=== PATIENT | male | born 1950 | race Two or more races ===

== ENCOUNTER 2021-06-12 21:37 | Emergency (ER) | payer MEDICARE, OTHER ==
[~2021-06-12] VITALS: Ht 172.7 cm; Wt 81.6 kg
[2021-06-12] MEDS ORDERED: methylPREDNISolone SOD SUCC 125 MG/2 ML VL IM ONE (23:30)
[2021-06-12] MEDS ORDERED: KETOROLAC TROMETH 60MG/2ML VIAL IM ONE (23:30)
[2021-06-13 00:34] VITALS: BP 90/56
== END 2021-06-13 00:40 | disposition home or self-care (01) ==
LOC: ER 21:37
DX: M62.838 Other muscle spasm (principal); M54.2 Cervicalgia; M43.12 Spondylolisthesis, cervical region; I10 Essential (primary) hypertension; J44.9 Chronic obstructive pulmonary disease, unspecified; F17.210 Nicotine dependence, cigarettes, uncomplicated; Z88.0 Allergy status to penicillin
CPT/HCPCS: 72125; 96372; 99284; J1885; J2930

== ENCOUNTER 2021-12-25 21:22 | Emergency (ER) | payer OTHER ==
[~2021-12-25] VITALS: Ht 175.3 cm; Wt 86.2 kg
[2021-12-26] MEDS ORDERED: ACETAMINOPHEN 325 MG TAB PO ONE (04:15)
[2021-12-26 04:16] VITALS: BP 112/68
== END 2021-12-26 04:32 | disposition home or self-care (01) ==
LOC: ER 21:22
DX: M54.9 Dorsalgia, unspecified (principal); G89.29 Other chronic pain; J44.9 Chronic obstructive pulmonary disease, unspecified; I10 Essential (primary) hypertension; F17.200 Nicotine dependence, unspecified, uncomplicated; Z88.0 Allergy status to penicillin
CPT/HCPCS: 72128; 72131; 93005

== ENCOUNTER 2022-07-28 13:14 | Emergency (ER) | payer OTHER ==
[~2022-07-28] VITALS: Ht 172.7 cm; Wt 85.0 kg
[2022-07-28 13:44] VITALS: BP 118/60
== END 2022-07-28 19:15 | disposition left against medical advice (07) ==
LOC: ER 13:14
DX: M54.9 Dorsalgia, unspecified (principal); Z53.21 Procedure and treatment not carried out due to patient leaving prior to being seen by health care provider
CPT/HCPCS: 72100; 93005

== ENCOUNTER 2023-07-16 12:46 | Emergency (ER) | payer OTHER ==
[~2023-07-16] VITALS: Ht 172.7 cm; Wt 80.0 kg
[2023-07-16] MEDS ORDERED: HYDROcodone-ACET 5/325MG TAB PO ONE (16:45)
[2023-07-16 16:59] VITALS: BP 109/66; PULSE 66; RESP 18; TEMP 98.6; O2SAT 98
[2023-07-16] MEDS ORDERED: DICL1GEL59 EX (17:28)
[2023-07-16] MEDS ORDERED: HYDR-4902 PO (17:28)
== END 2023-07-16 18:00 | disposition home or self-care (01) ==
LOC: ER 12:51
DX: M25.561 Pain in right knee (principal); M17.11 Unilateral primary osteoarthritis, right knee; I10 Essential (primary) hypertension; J44.9 Chronic obstructive pulmonary disease, unspecified; F17.210 Nicotine dependence, cigarettes, uncomplicated; Z79.899 Other long term (current) drug therapy; Z88.0 Allergy status to penicillin
CPT/HCPCS: 73562; 93971

== ENCOUNTER 2023-10-21 14:22 | Emergency (ER) | payer OTHER ==
[~2023-10-21] VITALS: Ht 172.7 cm; Wt 78.8 kg
[~2023-10-21 14:22] MED LIST: DICL1GEL59 EX; HYDR-4902 PO
[2023-10-21 18:48] VITALS: BP 103/62; PULSE 87; RESP 14; TEMP 98; O2SAT 96
[2023-10-21] MEDS: KETOROLAC TROMETH 60MG/2ML VIAL IM ONE (18:58)
[2023-10-21] MEDS ORDERED: IBUP-1455 PO (19:29)
[2023-10-21] MEDS ORDERED: CYCL-839 PO (19:29)
== END 2023-10-21 19:44 | disposition home or self-care (01) ==
LOC: ER 14:22
DX: M43.6 Torticollis (principal); M19.90 Unspecified osteoarthritis, unspecified site; J44.9 Chronic obstructive pulmonary disease, unspecified; I10 Essential (primary) hypertension; F17.210 Nicotine dependence, cigarettes, uncomplicated; Z88.0 Allergy status to penicillin
CPT/HCPCS: 72125; 96372; 99285; J1885

== ENCOUNTER 2025-01-25 10:17 | Inpatient (IN) | payer OTHER ==
[~2025-01-25] VITALS: Ht 172.7 cm; Wt 81.8 kg
[~2025-01-25 10:17] MED LIST changes: +CYCL-839 PO; +IBUP-1455 PO
--- NOTE | 2025-01-25 10:35 | ED.PDOC ---
History of Present Illness HPI Comments This is a 74-year-old male with no significant past medical history presented to the ER via EMS painful swelling of the right hand for last 2 days prior to this visit. The patient stated that he was pumping the kitchen sink got hurt in right hand and started developing painful swelling, getting worse that prompted this visit. Also mention that he has chronic back pain but for last 2 days back pain getting worse especially the upper back. He denies fever, chills, dizziness, blurred vision, dysuria, hematuria or any changes in bowel and bladder habit. Time Seen by MD: 10:18 Primary Care Provider: NONE Allergies: Coded Allergies: Penicillins (Verified Allergy, Unknown, 05/14/15) Home Meds Active Scripts Cyclobenzaprine Hcl (Cyclobenzaprine Hcl) 10 Mg Tab, 10 MG PO Q8HPRN PRN, #20 TAB Prov:PEGGY CASAREZ 10/21/23 Ibuprofen Micronized (Ibuprofen) 800 Mg Tab, 800 MG PO TIDPRN PRN, #20 TAB Prov:PEGGY CASAREZ [facility] 10/21/23 Diclofenac Sodium (Topical) (Voltaren Arthritis Pain) 1 % Gel, 1 % EX BID PRN, #100 GEL Prov:IDALMIS JOHNSON [employer]PROFIT MANAGER 07/16/23 Hydrocodone-Acetaminophen (Hydrocodone Bitartrate/AC 5-325 mg) 1 Tab Tab, 1 TAB PO Q8HPRN PRN for 5 Days, #12 TAB Prov:IDALMIS JOHNSON 07/16/23 Information Source: Patient Mode of Arrival: EMS Severity: Moderate Timing: Days Duration: Since onset Prehospital treatment: None Past Medical History PAST MEDICAL HISTORY: Denies Surgical History: Denies all surgeries Family History Family History: Reviewed,noncontributory to illness, No family hx of DM, No family hx of HTN Social History Smoker: Greater Than 1 Pack/Day Alcohol: Denies ETOH Use Drugs: Denies Drug Use Lives In: Home Constitutional: reports: chills, sweats; denies: diaphoresis, fatigue, fever, malaise, weakness, others EENTM: denies: blurred vision, double vision, ear bleeding, ear discharge, ear drainage, ear pain, ear ringing, eye pain, eye redness, hearing loss, mouth pain, mouth swelling, nasal discharge, nose bleeding, nose congestion, nose pain, photophobia, tearing, throat pain, throat swelling, voice changes, others Respiratory: denies: cough, hemoptysis, orthopnea, SOB at rest, shortness of breath, SOB with excertion, stridor, wheezing, others Cardiovascular: denies: chest pain, dizzy spells, diaphoresis, Dyspnea on e xertion, edema, irregular heart beat, left arm pain, lightheadedness, palpitations, PND, syncope, others Gastrointestinal: denies: abdomen distended, abdominal pain, blood streaked bowels, constipated, diarrhea, dysphagia, difficulty swallowing, hematemesis, melena, nausea, poor appetite, poor fluid intake, rectal bleeding, rectal pain, vomiting, others Genitourinary: denies: burning, dysuria, flank pain, frequency, hematuria, incontinence, penile discharge, penile sore, pain, testicle pain, testicle swelling, urgency, others Neurological: denies: dizziness, fainting, headache, left sided numbness, left sided weakness, numbness, paresthesia, pre-existing deficit, right sided numbness, right sided weakness, seizure, speech problems, tingling, tremors, weakness, others Musculoskeletal: reports: back pain, others (Pain and swelling of the right hand); denies: gout, joint pain, joint swelling, muscle pain, muscle stiffness, neck pain Integumetry: denies: bruises, change in color, change in hair/nails, dryness, laceration, lesions, lumps, rash, wounds, others Allergic/Immunocompromised: denies: Difficulty Healing, Frequent Infections, Hives, Itching, others Hematologic/Lymphatic: denies: anemia, blood clots, easy bleeding, easy bruising, swollen glands, others Endocrine: denies: excessive hunger, excessive sweating, excessive thirst, excessive urination, flushing, intolerance to cold, intolerance to heat, unexplained weight gain, unexplained weight loss, others Psychiatric: denies: anxiety, bipolar disorder, depression, hopeless, panic disorder, schizophrenia, sleepless, suicidal, others Physical Exam General Appearance: Mild Distress HEENT: Normal ENT Inspection, Pharynx Normal, TMs Normal Neck: Full Range of Motion, Non-Tender, Normal, Normal Inspection Respiratory: Chest Non-Tender, Lungs Clear, No Accessory Muscle Use, No Respiratory Distress, Normal Breath Sounds Cardiovascular: No Edema, No JVD, No Murmur, No Gallop, Normal Peripheral Pulses, Regular Rate/Rhythm Breast Exam: Deferred Gastrointestinal: No Organomegaly, Non Tender, No Pulsatile Mass, Normal Bowel Sounds, Soft Genitalia: Deferred Pelvic: Deferred Rectal: Deferred Extremities: No calf tenderness, Normal capillary refill, No pedal edema, Swelling (Right hand), Tender Neurologic: NOT DONE Cerebellar Function: NOT DONE Reflexes: NOT DONE Skin: NOT DONE Peripheral Pulses: 2+ carotid (R), 2+ carotid (L), 2+ femoral (R), 2+ femoral (L), 2+ dorsalis pedis (R), 2+ dorsalis pedis (L), 2+ Radial (R), 2+ Radial (L), 2+ Brachial (R), 2+ Brachial (L) Lymphatic: NOT DONE Was a procedure done? Was a procedure done?: No Differential Dx Considerations may include: Cellulitis of the right hand, erysipelas, DVT, fracture of the right hand, arthritis of right hand X-Ray, Labs, Meds, VS Vital Signs Date Time Temp Pulse Resp B/P (MAP) Pulse Ox O2 Delivery O2 Flow Rate FiO2 01/25/25 10:30 99.0 90 20 104/66 97 99.0 Lab Test 01/25/25 14:43 01/25/25 12:30 Range/Units Urine Color Yellow Yellow Urine Clarity Clear Clear Urine pH 6.0 5.0-9.0 Urine Specific [place] 1.025 1.001-1.035 Urine Protein Trace H Negative Urine Ketones 1+ H Negative Urine Blood 1+ H Negative /uL Urine Nitrite Negative Negative Urine Bilirubin Negative Negative Urine Urobilinogen Normal Negative mg/dL Urine Leukocyte Esterase Negative Negative /uL Urine RBC 8 0 - 3 /hpf Urine Microscopic WBC 3 0-3 /HPF Urine Squamous Epithelial Cells None seen <5 /hpf Urine Bacteria None seen None Seen /hpf Urine Mucus Moderate None Seen Urine Glucose 1+ H Normal mg/dL White Blood Count 8.0 4.4-10.8 10^3/uL Red Blood Count 4.85 4.5-5.90 10^6/uL Hemoglobin 15.6 13.5-17.5 g/dL Hematocrit 45.7 41.0-53.0 % Mean Corpuscular Volume 94.3 80.0-100.0 fL Mean Corpuscular Hemoglobin 32.1 H 28.0-32.0 pg Mean Corpuscular Hemoglobin Concent 34.1 32.0-36.0 g/dL Red Cell Distribution Width 13.8 11.8-14.3 % Platelet Count 290 140-450 10^3/uL Mean Platelet Volume 7.9 6.9-10.8 fL Neutrophils (%) (Auto) 72.3 37.0-80.0 % Lymphocytes (%) (Auto) 13.7 10.0-50.0 % Monocytes (%) (Auto) 12.7 H 0.0-12.0 % Eosinophils (%) (Auto) 0.7 0.0-7.0 % Basophils (%) (Auto) 0.6 0.0-2.0 % Neutrophils # (Auto) 5.8 1.6-8.6 10 ^3/uL Lymphocytes # (Auto) 1.1 0.4-5.4 10 ^3/uL Monocytes # (Auto) 1.0 0-1.3 10 ^3/uL Eosinophils # (Auto) 0.1 0-0.8 10 ^3/uL Basophils # (Auto) 0 0-0.2 10 ^3/uL Nucleated Red Blood Cells 0.0 % Sodium Level 136 136-145 mmol/L Potassium Level 3.9 3.5-5.1 mmol/L Chloride Level 103 98-107 mmol/L Carbon Dioxide Level 25 20-31 mmol/L Anion Gap 8 5-15 Blood Urea Nitrogen 16 9-23 mg/dL Creatinine 0.80 0.700-1.30 mg/dL Glomerular Filtration Rate Calc 92 >90 mL/min BUN/Creatinine Ratio 20.0 10.0-20.0 Serum Glucose 103 74-106 mg/dL Calcium Level 9.2 8.7-10.4 mg/dL C-Reactive Protein High Sensitivity 11.90 H <1.0 mg/dL X-Ray, Labs, Meds, VS Comment RIGHT Upper Extremity Venous Duplex Clinical History: to exclude DVT Comparison: US RT LOWER DVT on DOS: 07/16/23 Technique: Duplex Doppler evaluation of the venous system of the RIGHT lower neck and upper extremity including color Doppler and spectral/pulsed waveform analysis was performed. Findings: The internal jugular vein demonstrates appropriate compressibility and waveform variability. The subclavian vein is patent on color Doppler evaluation without intraluminal thrombus and demonstrates waveform variability. The visualized portion of the brachiocephalic vein is patent on color Doppler evaluation without intraluminal thrombus and demonstrates waveform variability. The axillary vein demonstrates appropriate compressibility and waveform variability. The brachial veins demonstrate appropriate compressibility and patency on Doppler evaluation. The basilic vein demonstrates appropriate compressibility and patency on Doppler evaluation. The cephalic vein demonstrates appropriate compressibility and patency on Doppler evaluation. Impression: No venous thrombus identified in the RIGHT upper extremity vessels evaluated above. Images Reviewed?: Images reviewed and evaluated by me Time of 1ST Reevaluation: 13:52 Reevaluation 1ST: Unchanged Patient Education/Counseling: Diagnosis, Treatment Family Education/Counseling: No Family Present SEPSIS Sepsis Screen Physician Orders Rt Upper Dvt (01/25/25 10:32) R Hand 2 View Xray (01/25/25 13:23) Vital Signs Date Time Temp Pulse Resp B/P (MAP) Pulse Ox O2 Delivery O2 Flow Rate FiO2 01/25/25 10:30 99.0 90 20 104/66 97 99.0 Laboratory Tests Test 01/25/25 12:30 White Blood Count 8.0 10^3/uL (4.4-10.8) Departure 1 Departure Time of Disposition: 17:12 Impression: Primary Impression: Cellulitis of right hand Disposition: 30 STILL A PATIENT Admit to: Med Surg Condition: Guarded Critical Care Note Critical Care Time?: No Stability Stability form required: COOPER Hernandez RESIDENT Jan 25, 2025 10:35
--- NOTE | 2025-01-25 11:48 | DVH ---
RIGHT Upper Extremity Venous Duplex Clinical History: to exclude DVT Comparison: US RT LOWER DVT on DOS: 07/16/23 Technique: Duplex Doppler evaluation of the venous system of the RIGHT lower neck and upper extremity including color Doppler and spectral/pulsed waveform analysis was performed. Findings: The internal jugular vein demonstrates appropriate compressibility and waveform variability. The subclavian vein is patent on color Doppler evaluation without intraluminal thrombus and demonstra etienne waveform variability. The visualized portion of the brachiocephalic vein is patent on color Doppler evaluation without intr aluminal thrombus and demonstrates waveform variability. The axillary vein demonstrates appropriate compressibility and waveform variability. The brachial veins demonstrate appropriate compressibility and patency on Doppler evaluation. The basilic vein demonstrates appropriate compressibility and patency on Doppler evaluation. The cephalic vein demonstrates appropriate compressibility and patency on Doppler evaluation. Impression: No venous thrombus identified in the RIGHT upper extremity vessels evaluated above.
[2025-01-25 13:20] LABS: Hematocrit 45.7 % (41.0-53.0); Hemoglobin 15.6 g/dL (13.5-17.5); Mean Corpuscular Hemoglobin 32.1 pg (28.0-32.0); Mean Corpuscular Volume 94.3 fL (80.0-100.0); Nucleated Red Blood Cells % 0.0 %
[2025-01-25 13:28] LABS: Chloride 103 mmol/L (98-107); Potassium 3.9 mmol/L (3.5-5.1)
[2025-01-25 13:29] LABS: Anion Gap 8 (5-15); Calcium 9.2 mg/dL (8.7-10.4); Carbon Dioxide 25 mmol/L (20-31)
[2025-01-25 13:31] LABS: Sodium 136 mmol/L (136-145)
[2025-01-25 13:34] LABS: BUN/Creatinine Ratio 20.0 (10.0-20.0); Blood Urea Nitrogen 16 mg/dL (9-23); Glucose 103 mg/dL (74-106)
--- NOTE | 2025-01-25 14:50 | DVH ---
CLINICAL INDICATION: Possible cellulitis of the right hand TECHNIQUE: 2 radiographic views of the right were obtained. Comparison: None FINDINGS/IMPRESSION: Arthritic changes of the distal interphalangeal joint of all fingers and at the carpometacarpal joint of the thumb
[2025-01-25 15:38] LABS: Urine Protein, UAD TRACE (Negative)
[2025-01-25] MEDS ORDERED: ONDANSETRON HCL 4 MG/2 ML VIAL IV PRN (19:45)
[2025-01-25] MEDS ORDERED: DOCUSATE SOD 100 MG CAP PO PRN (19:45)
[2025-01-25] MEDS ORDERED: MORPHINE SULFATE INJ 2 MG/ml SYRG IV PRN ×2 (19:45→20:30)
[2025-01-25] MEDS ORDERED: HYDROcodone-ACET 5/325MG TAB PO PRN (19:45)
[2025-01-25] MEDS ORDERED: ACETAMINOPHEN 325 MG TAB PO PRN (19:45)
[2025-01-25] MEDS ORDERED: NITROGLYCERIN 0.4 MG SL TAB SL PRN (20:30)
--- NOTE | 2025-01-25 20:31 | DVHHP2 ---
History of Present Illness Reason for Visit: Cellulitis of right hand History of Present Illness The patient is a 74-year-old male who denies past medical history presented to [facility] ED with complaint of right hand swelling and pain for the past 2 days. The patient reports that he was pumping the kitchen sink got hurt in right hand and started developing painful swelling, getting worse that prompted this visit. Patient also mention that he has chronic back pain but for last 2 days back pain getting worse especially the upper back. Patient also reports that he has chronic back pain but for last 2 days, back pain getting worse especially the upper back. Patient was seen and evaluated in the ED, laboratory data shows WBC 8.0, platelets 290, sodium 136, potassium 3.9, BUN 16, creatinine 0.80, glucose 103, calcium 9.2, CRP 11.90, blood pressure 104/66, heart rate 90, temperature 99.0 F, O2 saturation 97% on room air. Hand x-ray revealing arthritic changes of the distal interphalangeal joint of fingers and at the carpometacarpal joint of the thumb. Patient was given morphine sulfate 2 mg IV x1, please see medication orders section in the computer. On my assessment, patient denied chest pain, no headache, no dizziness, no shortness of breath, no nausea, no vomiting, no fever, no chills. Patient was admitted for further evaluation and medical management. Past Medical History Denies past medical history Past Surgical History Denies all surgeries Family History Reviewed, noncontributory to the management of this case. Past Social History The patient lives at home, smokes cigarettes greater than 1 pack per day, denies alcohol or illicit drugs abuse. Review of Systems Constitutional: Yes: Weakness; No: Fever, Chills, Sweats, Malaise, Other Eyes: No: Pain, Vision change, Conjunctivae inflammation, Eyelid inflammation, Other, Redness ENT: No: Ear pain, Ear discharge, Nose pain, Nose discharge, Nose congestion, Mouth pain, Mouth swelling, Throat pain, Throat swelling, Other Respiratory: No: Cough, Dry, Shortness of breath, SOB with excertion, Wheezing, Hemoptysis, Pleuritic Pain, Sputum, Wheezing, Other Cardiovascular: No: Chest Pain, Palpitations, Orthopnea, Paroxysmal Noc. Dyspnea, Edema, Lt Headedness, Other Gastrointestinal: No: Nausea, Vomiting, Abdominal Pain, Diarrhea, Constipation, Melena, Hematochezia, Other Genitourinary: No Dysuria, No Frequency, No Incontinence, No Hematuria, No Retention, No Other Musculoskeletal: other (Pain and swelling of the right hand.), back pain; No: neck pain, shoulder pain, arm pain, hand pain, leg pain, foot pain Skin: No: Rash, Lesions, Jaundice, Bruising, Other Neurological: No: Weakness, Numbness, Incoordination, Change in speech, Confusion, Seizures, Other Allergies: Coded Allergies: Penicillins (Verified Allergy, Unknown, 05/14/15) Medications Current Medications Medications Dose Ordered Sig/Wenceslao Route Start Time Stop Time Status Last Admin Dose Admin Clindamycin Phosphate 50 ml @ 50 mls/hr Q8HR IV 01/25/25 22:00 UNV Sodium Chloride 1,000 ml @ 60 mls/hr [id number] IV 01/25/25 19:45 UNV Acetaminophen/ Hydrocodone Bitart 1 tab Q4HP PRN PO 01/25/25 19:45 UNV Ondansetron HCl 4 mg Q4HP PRN IV 01/25/25 19:45 UNV Docusate Sodium 100 mg BIDPRN PRN PO 01/25/25 19:45 UNV Acetaminophen 650 mg Q6HP PRN PO 01/25/25 19:45 UNV Morphine Sulfate 2 mg Q4HPRN PRN IV 01/25/25 19:45 UNV Exam Vital Signs Vital Signs Date Time Temp Pulse Resp B/P (MAP) Pulse Ox O2 Delivery O2 Flow Rate FiO2 01/25/25 10:30 99.0 90 20 104/66 97 99.0 General Appearance: Alert, Oriented X3, Cooperative, No acute distress HEENT: Atraumatic, PERRLA, EOMI, Mucous membr. moist/pink Respiratory: Clear to auscultation, Normal air movement Cardiovascular: Regular rate, Normal S1, Normal S2, No murmurs Abdominal: Normal bowel sounds, Soft, No tenderness, No hepatospenomegaly, No masses Extremities: No clubbing, No cyanosis, Normal pulses, Other (Right hand tenderness/swelling) Skin: No rashes, No significant lesion Neuro: Normal speech, Normal tone, Sensation intact, Cranial nerves 3-12 NL, Reflexes 2+, Other (Generalized weakness) Psych/Mental Status: Mental status NL, Mood NL Labs/Xrays Labs Test 01/25/25 14:43 01/25/25 12:30 Range/Units Urine Color Yellow Yellow Urine Clarity Clear Clear Urine pH 6.0 5.0-9.0 Urine Specific [place] 1.025 1.001-1.035 Urine Protein Trace H Negative Urine Ketones 1+ H Negative Urine Blood 1+ H Negative /uL Urine Nitrite Negative Negative Urine Bilirubin Negative Negative Urine Urobilinogen Normal Negative mg/dL Urine Leukocyte Esterase Negative Negative /uL Urine RBC 8 0 - 3 /hpf Urine Microscopic WBC 3 0-3 /HPF Urine Squamous Epithelial Cells None seen <5 /hpf Urine Bacteria None seen None Seen /hpf Urine Mucus Moderate None Seen Urine Glucose 1+ H Normal mg/dL White Blood Count 8.0 4.4-10.8 10^3/uL Red Blood Count 4.85 4.5-5.90 10^6/uL Hemoglobin 15.6 13.5-17.5 g/dL Hematocrit 45.7 41.0-53.0 % Mean Corpuscular Volume 94.3 80.0-100.0 fL Mean Corpuscular Hemoglobin 32.1 H 28.0-32.0 pg Mean Corpuscular Hemoglobin Concent 34.1 32.0-36.0 g/dL Red Cell Distribution Width 13.8 11.8-14.3 % Platelet Count 290 140-450 10^3/uL Mean Platelet Volume 7.9 6.9-10.8 fL Neutrophils (%) (Auto) 72.3 37.0-80.0 % Lymphocytes (%) (Auto) 13.7 10.0-50.0 % Monocytes (%) (Auto) 12.7 H 0.0-12.0 % Eosinophils (%) (Auto) 0.7 0.0-7.0 % Basophils (%) (Auto) 0.6 0.0-2.0 % Neutrophils # (Auto) 5.8 1.6-8.6 10 ^3/uL Lymphocytes # (Auto) 1.1 0.4-5.4 10 ^3/uL Monocytes # (Auto) 1.0 0-1.3 10 ^3/uL Eosinophils # (Auto) 0.1 0-0.8 10 ^3/uL Basophils # (Auto) 0 0-0.2 10 ^3/uL Nucleated Red Blood Cells 0.0 % Sodium Level 136 136-145 mmol/L Potassium Level 3.9 3.5-5.1 mmol/L Chloride Level 103 98-107 mmol/L Carbon Dioxide Level 25 20-31 mmol/L Anion Gap 8 5-15 Blood Urea Nitrogen 16 9-23 mg/dL Creatinine 0.80 0.700-1.30 mg/dL Glomerular Filtration Rate Calc 92 >90 mL/min BUN/Creatinine Ratio 20.0 10.0-20.0 Serum Glucose 103 74-106 mg/dL Calcium Level 9.2 8.7-10.4 mg/dL C-Reactive Protein High Sensitivity 11.90 H <1.0 mg/dL PATIENT: ANDREE SPAULDING ACCT: [id number] UNIT: [id number] : 1950 LOC: ER ROOM / BED: / AGE / SEX: 74 / M ADM STATUS: REG ER SERVICE 1032 ORDERING PHYSICIAN: COOEPR VAUGHN PROCEDURE(s): RUDVT - Rt Upper DVT REASON: to exclude DVT ORDER NUMBER(s): [id number], ACCESSION NUMBER(s): [id number] RIGHT Upper Extremity Venous Duplex Clinical History: to exclude DVT Comparison: US RT LOWER DVT on DOS: 07/16/23 Technique: Duplex Doppler evaluation of the venous system of the RIGHT lower neck and upper extremity including color Doppler and spectral/pulsed waveform analysis was performed. Findings: The internal jugular vein demonstrates appropriate compressibility and waveform variability. The subclavian vein is patent on color Doppler evaluation without intraluminal thrombus and demonstrates waveform variability. The visualized portion of the brachiocephalic vein is patent on color Doppler evaluation without intraluminal thrombus and demonstrates waveform variability. The axillary vein demonstrates appropriate compressibility and waveform varia bility. The brachial veins demonstrate appropriate compressibility and patency on Doppler evaluation. The basilic vein demonstrates appropriate compressibility and patency on Doppler evaluation. The cephalic vein demonstrates appropriate compressibility and patency on Doppler evaluation. Impression: No venous thrombus identified in the RIGHT upper extremity vessels evaluated above. ORDERING PHYSICIAN: COOPER VAUGHN PROCEDURE(s): RHAN2 - R HAND 2 VIEW XRAY REASON: Possible cellulitis of the right hand ORDER NUMBER(s): [id number], ACCESSION NUMBER(s): [id number] CLINICAL INDICATION: Possible cellulitis of the right hand TECHNIQUE: 2 radiographic views of the right were obtained. Comparison: None FINDINGS/IMPRESSION: Arthritic changes of the distal interphalangeal joint of all fingers and at the carpometacarpal joint of the thumb SEPSIS Sepsis Screen Date sepsis recognized/suspect: Jan 25, 2025 Time Sepsis recognized/suspect: 1030 Recent Procedure: No On Antibiotic Therapy: No Respiratory Rate >20: No Heart Rate >90: No Temp<36 C (96.8 F) or >38.3 C: No SBP <90 or MAP <65 mmHG: No New Acute Mental Status Change: No Is the patient on CPAP, BIPAP,: No Physician Orders R Hand 2 View Xray (01/25/25 13:23) Clindamycin 300mg Iv (Cleocin Iv) (01/25/25 22:00) Allergies (01/25/25 19:37) Code Status (01/25/25 19:37) Sodium Chloride 0.9% (01/25/25 19:45) Oxygen Per Hour (01/25/25 19:37) Hydrocodone-Acet 5/325mg Tab ([place] (01/25/25 19:45) Ondansetron Hcl (Zofran) (01/25/25 19:45) Docusate Sodium Capsule (Colace Capsule) (01/25/25 19:45) Complete Blood Count (01/26/25 04:00) Comprehensive Metabolic Panel (01/26/25 04:00) Cardiac Diet-2gna,Lofat,Lochol (01/26/25 Breakfast) Condition: Serious (01/25/25 19:37) Acetaminophen Tablet (Tylenol Tablet) (01/25/25 19:45) Bedrest With Bathroom Privileg (01/25/25 19:37) Morphine Sulfate Injection (01/25/25 19:45) Sequential Compression Device (01/25/25 ) Admit (01/25/25 20:29) Nitroglycerin Sublingual (Ntrostat Subli (01/25/25 20:30) Morphine Sulfate Injection (01/25/25 20:30) Notify Md Of Changes From Base (01/25/25 20:29) Emergency Dysrhythmia Protocol (01/25/25 20:29) Oxygen By Nasal Cannula (01/25/25 20:29) Laboratory Tests Test 01/25/25 12:30 White Blood Count 8.0 10^3/uL (4.4-10.8) Assessment/Plan Assessment/Plan Cellulitis of right hand Arthritis Right hand pain Systemic inflammatory response syndrome Plan 1. Admit to med surge unit 2. Breathing treatment 3. Pain control management 4. IV antibiotic management 5. Management of fluids and electrolytes 6. Consultation for hospitalist 7. Diagnostic test right hand x-ray 8. DVT prophylaxis-on SCDs 9. Repeat labs CBC, CMP in a.m. 10. Continue with current medical management 11. Treatment plan discussed with patient and RN. Patient verbalized understanding. Plan discussed with: Patient, Other (RN) My Orders Orders - JUANA BENOIT DNP Procedure Category Date Status Time Clindamycin 300mg Iv PHA 01/25/25 Logged (Cleocin Iv) 22:00 Allergies SILAS 01/25/25 In Process 19:37 Code Status CODE 01/25/25 Transmitted 19:37 Sodium Chloride 0.9% PHA 01/25/25 Logged 19:45 Oxygen Per Hour RT 01/25/25 Transmitted 19:37 Hydrocodone-Acet PHA 01/25/25 Logged 5/325mg Tab ([place] 19:45 Ondansetron Hcl PHA 01/25/25 Logged (Zofran) 19:45 Docusate Sodium PHA 01/25/25 Logged Capsule (Colace 19:45 Complete Blood Count LAB 01/26/25 Verified 04:00 Comprehensive LAB 01/26/25 Verified Metabolic Panel 04:00 Cardiac DIET 01/26/25 Transmitted Diet-2gna,Lofat,Lochol Breakfast Condition: Serious SILAS 01/25/25 In Process 19:37 Acetaminophen Tablet PHA 01/25/25 Logged (Tylenol Tablet) 19:45 Bedrest With Bathroom SILAS 01/25/25 In Process Privileg 19:37 Morphine Sulfate PHA 01/25/25 Logged Injection 19:45 Sequential SILAS 01/25/25 In Process Compression Device Admit ADMIT 01/25/25 Verified 20:29 Nitroglycerin PHA 01/25/25 Verified Sublingual (Ntrostat 20:30 Morphine Sulfate PHA 01/25/25 Verified Injection 20:30 Notify Of Changes SILAS 01/25/25 Verified From Base 20:29 Emergency Dysrhythmia SILAS 01/25/25 Verified Protocol 20:29 Oxygen By Nasal RT 01/25/25 Verified Cannula 20:29 Problem List: (1) Cellulitis of right hand (2) Arthritis (3) Right hand pain (4) Systemic inflammatory response syndrome (SIRS) Date of Service: Jan 25, 2025 Billing Provider: JUANA BENOIT DNP Common Visit Codes: [id number] INP/OBS CARE (HIGH) JUANA BENOIT DNP Jan 25, 2025 20:31
[2025-01-25 21:05] VITALS: BP 114/70; PULSE 80; RESP 16; TEMP 98.3; O2SAT 95
[2025-01-25] MEDS: SODIUM CHLORIDE 0.9% 1,000 ML IV SCH (21:38)
[2025-01-25] MEDS: CLINDAMYCIN 300MG IV 50 ML IV ONE (21:51)
[2025-01-25] MEDS: MORPHINE SULFATE INJ 2 MG/ml SYRG IV ONE (21:52)
[2025-01-25] MEDS: SODIUM CHLORIDE 0.9% 500 ML IV ONE (21:52)
[2025-01-25] MEDS: CLINDAMYCIN 300MG IV 50 ML IV SCH (21:56)
[2025-01-26 04:17] LABS: Hematocrit 44.9 % (41.0-53.0); Hemoglobin 15.3 g/dL (13.5-17.5); Mean Corpuscular Hemoglobin 32.1 pg (28.0-32.0); Mean Corpuscular Volume 94.3 fL (80.0-100.0); Nucleated Red Blood Cells % 0.1 %
[2025-01-26 04:33] LABS: Alanine Aminotransferase 12 U/L (7-40); Albumin 4.2 g/dL (3.2-4.8); Alkaline Phosphatase 66 U/L (46-116); Anion Gap 9 (5-15); BUN/Creatinine Ratio 23.5 (10.0-20.0); Bilirubin, Total 0.7 mg/dL (0.2-1.0); Blood Urea Nitrogen 20 mg/dL (9-23); Calcium 9.3 mg/dL (8.7-10.4); Carbon Dioxide 23 mmol/L (20-31); Chloride 103 mmol/L (98-107); Potassium 3.6 mmol/L (3.5-5.1); Total Protein 7.5 g/dL (5.7-8.2)
[2025-01-26 04:39] LABS: Glucose 112 mg/dL (74-106); Sodium 135 mmol/L (136-145)
== END 2025-01-26 10:45 | disposition left against medical advice (07) | DRG 603 ==
LOC: ER 10:17 → EDBD 10:17 → OVERFLOW 20:29
PROVIDERS: ADMIT Nurse Practitioner Acute Care; ATTEND Nurse Practitioner Acute Care
DX: L03.113 Cellulitis of right upper limb (principal); R65.10 Systemic inflammatory response syndrome (SIRS) of non-infectious origin without acute organ dysfunction; Z53.29 Procedure and treatment not carried out because of patient's decision for other reasons; F17.210 Nicotine dependence, cigarettes, uncomplicated; M19.09 Primary osteoarthritis, other specified site; G89.29 Other chronic pain; Z88.0 Allergy status to penicillin; Z79.1 Long term (current) use of non-steroidal anti-inflammatories (NSAID); Z79.899 Other long term (current) drug therapy; Z86.718 Personal history of other venous thrombosis and embolism
CPT/HCPCS: 36415; 73120; 80048; 80053; 81001; 85025; 86141; 93971; 96365; G0378; J3490